=== PATIENT | female | born 1990 | race Two or more races ===

== ENCOUNTER 2016-07-22 13:18 | Emergency (ER) | payer OTHER ==
[~2016-07-22 13:18] MED LIST: IRON325 ( 65 ) PO; PRENATAL; PRENATAL VITAMI PO
== END 2016-07-22 15:40 ==
LOC: EDMED 13:18
PROC: 2W3QXYZ Immobilization of Right Lower Leg using Other Device (ICD-10-PCS; principal; 2016-07-22)
DX: S93.402A Sprain of unspecified ligament of left ankle, initial encounter (principal); Z98.890 Other specified postprocedural states; Z87.891 Personal history of nicotine dependence; X50.1XXA Overexertion from prolonged static or awkward postures, initial encounter